=== PATIENT | female | born 1985 | race Asian ===

== ENCOUNTER 2017-11-06 17:51 | Outpatient (CLI) | END 2017-11-06 22:15 | disposition home or self-care (01) ==

== ENCOUNTER 2017-11-18 15:58 | Outpatient (CLI) | END 2017-11-18 21:25 | disposition home or self-care (01) ==

== ENCOUNTER 2017-11-23 04:04 | Inpatient (IN) | END 2017-11-27 22:00 | disposition home or self-care (01) | DRG 766 ==

== ENCOUNTER 2018-06-01 23:29 | Emergency (ER) | payer OTHER ==
[~2018-06-01] VITALS: Ht 157.5 cm; Wt 77.3 kg
[~2018-06-01 23:29] MED LIST: LEVO125T7 PO; PNV11TAB PO
[2018-06-01 23:39] VITALS: Ht 157.5 cm; Wt 77.3 kg
[2018-06-02] MEDS: SOD CHLORIDE 0.9% 1,000 ML IV STA ×2 (00:45→00:46)
--- NOTE | 2018-06-02 01:01 | ERD ---
ER Documentation Chief Complaint Chief Complaint vaginal bleeding since yesterday, unknown if . lmp 02/2018 HPI 32-year-old female presents here to emergency department for complaints of vaginal bleeding that started yesterday, known , has not had. For the last 3 months, complains of pelvic pain cramping pain, 6/10 scale, accompanied with vaginal bleeding, started as a spotting, got worse today. Patient denies any fever or chills. ROS All systems reviewed and are negative except as per history of present illness. Medications Home Meds Reported Medications Levothyroxine Sodium* (Levothyroxine Sodium*) 125 Mcg Tablet, 125 MCG PO BEFORE BREAKFAST, #30 TAB 11/18/17 [id number] ( 19) 1 Each Tablet, 1 TAB PO DAILY, TAB 11/18/17 Allergies Allergies: Coded Allergies: No Known Allergy (Unverified , 11/23/17) PMhx/Soc Medical and Surgical Hx: pt denies Medical Hx, pt denies Surgical Hx History of Surgery: No Anesthesia Reaction: No (UNKNOWN) Hx Neurological Disorder: No Hx Respiratory Disorders: No Hx Cardiac Disorders: No Hx Psychiatric Problems: No Hx Miscellaneous Medical Probl: Yes (HYPOTHYROIDISM) Hx Alcohol Use: No Hx Substance Use: No Hx Tobacco Use: No Smoking Status: Never smoker FmHx Family History: No diabetes, No coronary disease, No other Physical Exam Vitals Vital Signs Date Temp Pulse Resp B/P (MAP) Pulse Ox O2 O2 Flow FiO2 Time Delivery Rate 06/01/18 98.0 88 18 112/79 98 23:39 (90) Physical Exam GENERAL: The patient is well developed and appropriate for usual state of health, in no apparent distress. CHEST: Clear to auscultation bilaterally. There are no rales, wheezes or rhonchi. HEART: Regular rate and rhythm. No murmurs, clicks, rubs or gallops. No S3 or S4. ABDOMEN: Soft, nontender and nondistended. Good bowel sounds. No rebound or guarding. No gross peritonitis. No gross organomegaly or masses. No Jung sign or McBurney point tenderness. BACK: No midline or flank tenderness. EXTREMITIES: Equal pulses bilaterally. There is no peripheral clubbing, c yanosis or edema. No focal swelling or erythema. Full range of motion. Grossly neurovascularly intact. NEURO: Alert and oriented. Cranial nerves 2-12 intact. Motor strength in all 4 extremities with 5/5 strength. Sensation grossly intact. Normal speech and gait. SKIN: There is no apparent rash or petechia. The skin is warm and dry. HEMATOLOGIC AND LYMPHATIC: There is no evidence of excessive bruising or lymphedema. No gross cervical, axillary, or inguinal lymphadenopathy. Result Diagram: 06/02/18 0048 Results 24 hrs Laboratory Tests Test 06/02/18 00:21 06/02/18 00:46 06/02/18 00:48 Urine Color AUNDREA Urine Clarity TURBID Urine pH 6.0 Urine Specific [place] 1.016 Urine Ketones TRACE mg/dL Urine Nitrite NEGATIVE mg/dL Urine Bilirubin NEGATIVE mg/dL Urine Urobilinogen NEGATIVE mg/dL Urine Leukocyte Esterase NEGATIVE Yo/ul Urine Microscopic RBC > 182 /HPF Urine Microscopic WBC 0 /HPF Urine Bacteria FEW /HPF Urine Mucus MANY /HPF Urine Hemoglobin 3+ mg/dL Urine Glucose NEGATIVE mg/dL Urine Total Protein 2+ mg/dl POC Beta HCG, Qualitative POSITIVE White Blood Count 10.1 10^3/ul Red Blood Count 4.33 10^6/ul Hemoglobin 12.2 g/dl Hematocrit 37.8 % Mean Corpuscular Volume 87.3 fl Mean Corpuscular Hemoglobin 28.2 pg Mean Corpuscular 32.3 g/dl Hemoglobin Concent Red Cell Distribution Width 13.1 % Platelet Count 156 10^3/UL Mean Platelet Volume 11.8 fl Immature Granulocytes % 0.600 % Neutrophils % 76.5 % Lymphocytes % 16.7 % Monocytes % 5.8 % Eosinophils % 0.2 % Basophils % 0.2 % Nucleated Red Blood Cells % 0.0 /100WBC Immature Granulocytes # 0.060 10^3/ul Neutrophils # 7.7 10^3/ul Lymphocytes # 1.7 10^3/ul Monocytes # 0.6 10^3/ul Eosinophils # 0.0 10^3/ul Basophils # 0.0 10^3/ul Nucleated Red Blood Cells # 0.0 10^3/ul Serum HCG, Qualitative POSITIVE Beta HCG, Quantitative 3626.0 mIU/ml Current Medications Medications Dose Sig/Kathi Start Time Status Last (Trade) Ordered Route PRN Stop Time Admin Dose Reason Admin Sodium 1,000 ml @ Q1H STAT 06/02/18 DC 06/02/18 Chloride 1,000 mls/hr IV 00:33 00:46 06/02/18 01:32 Normal saline IV bolus was given here in emergency department for rehydration, patient tolerated IV fluids. Procedures/MDM Medical Decision Making: Patients vaginal bleeding is most likely consistent of possible threatened . Patient does not show any evidence of hypovolemic shock. Patients hemoglobin and hematocrit is stable. There is low suspicion for ectopic . SCOTT results show 6-week without any heartbeat. BetaHCG Quantitative is appropriate for .The patient is Rh+, does not need RhoGAM this time. There is no signs of symptoms of dehydration. There is low suspicion for sepsis. Patient appears well and is hemodynamically stable. Disposition: Home. Condition: Stable Prescription: Tylenol ferrous sulfate Instructions: Patient is advised to do bed rest, avoid heavy lifting, and avoid having sex until cleared by OB doctor. Patient is advised to follow up with OB doctor or here at the ER in 48 hours for reevaluation of symptoms, repeat beta HCG quantitative and ultrasound. Patient is advised that is symptoms are worst, severe bleeding, dizziness, severe abdominal pain, fever, worst signs and symptoms to return to the emergency department immediately. Disclaimer: Inadvertent spelling and grammatical errors are likely due to EHR/dictation software use and do not reflect on the overall quality of patient care. Also, please note that the electronic time recorded on this note does not necessarily reflect the actual time of the patient encounter. Departure Diagnosis: Primary Impression: Vaginal bleeding affecting early Condition: Stable Patient Instructions: Vaginal Bleed in Additional Instructions: : Patient is advised to do bed rest, avoid heavy lifting, and avoid having sex until cleared by OB doctor. Patient is advised to follow up with OB doctor or here at the ER in 48 hours for reevaluation of symptoms, repeat beta HCG quantitative and ultrasound. Patient is advised that is symptoms are worst, severe bleeding, dizziness, severe abdominal pain, fever, worst signs and sympto ms to return to the emergency department immediately. MELBA SHANE NP Jun 02, 2018 01:01
[2018-06-02] MEDS ORDERED: ACET500C5 PO (02:28)
[2018-06-02] MEDS ORDERED: FER325 PO (02:28)
[2018-06-02 02:55] VITALS: BP 122/69; PULSE 86; RESP 19
== END 2018-06-02 02:56 | disposition home or self-care (01) ==
LOC: FTE 23:29
DX: O20.9 Hemorrhage in early pregnancy, unspecified (principal); E03.9 Hypothyroidism, unspecified; O99.281 Endocrine, nutritional and metabolic diseases complicating pregnancy, first trimester; R10.2 Pelvic and perineal pain; Z3A.01 Less than 8 weeks gestation of pregnancy
CPT/HCPCS: 36415; 76801; 76817; 81001; 81025; 84702; 84703; 85025; 86900; 86901; J7030; Z7502

== ENCOUNTER 2018-12-26 15:19 | Inpatient (IN) | payer OTHER ==
[~2018-12-26] VITALS: Ht 157.5 cm; Wt 78.6 kg
[~2018-12-26 15:19] MED LIST changes: +ACET500C5 PO; +FER325 PO; +IBUP-1542 PO
[2018-12-26] MEDS ORDERED: ONDANSETRON 4 MG INJ IV PRN (20:00)
[2018-12-26] MEDS ORDERED: ACETAMINOPHEN 325 MG TAB PO PRN (20:00)
--- NOTE | 2018-12-26 20:11 | ERD ---
ER Documentation Chief Complaint Chief Complaint right lower quad pain x 4 days with nausea HPI This is a 33-year-old G3, female who presents to the ED complaining of progressively worsening right lower pelvic pain x4 days. Patient states pain radiates towards her mid upper back. She states pain is worse when standing or with movement. She states her last menstrual cycle was October 31, 2018 and does not know if she is . She states she had a similar pain approximately 3 years ago which was related to her right ovarian cyst. She denies any nausea or vomiting. Denies any vaginal bleeding or discharge. No urinary symptoms. No nausea or vomiting. No chest pain or shortness of breath. No other complaints. ROS All systems reviewed and are negative except as per history of present illness. Medications Home Meds Active Scripts Ferrous Sulfate* (Ferrous Sulfate*) 325 Mg Tabec, 325 MG PO BID, #60 TAB Prov:MELBA SHANE COMMUTATOR INSPECTOR 06/02/18 Acetaminophen* (Tylophen*) 500 Mg Capsule, 1 CAP PO Q6H PRN for PAIN AND OR ELEVATED TEMP, #20 CAP Prov:MELBA SHANE COMMUTATOR INSPECTOR 06/02/18 Reported Medications Levothyroxine Sodium* (Levothyroxine Sodium*) 125 Mcg Tablet, 125 MCG PO BEFORE BREAKFAST, #30 TAB 11/18/17 [id number] ( 19) 1 Each Tablet, 1 TAB PO DAILY, TAB 11/18/17 Allergies Allergies: Coded Allergies: No Known Allergy (Unverified , 11/23/17) PMhx/Soc History of Surgery: Yes (C section) Anesthesia Reaction: No (UNKNOWN) Hx Neurological Disorder: No Hx Respiratory Disorders: No Hx Cardiac Disorders: No Hx Psychiatric Problems: No Hx Miscellaneous Medical Probl: Yes (HYPOTHYROIDISM) Hx Alcohol Use: No Hx Substance Use: No Hx Tobacco Use: No Smoking Status: Never smoker Physical Exam Vitals Vital Signs Date Temp Pulse Resp B/P (MAP) Pulse Ox O2 O2 Flow FiO2 Time Delivery Rate 12/26/18 98.6 84 18 165/63 99 15:25 (97) Physical Exam Const: No acute distress Head: Atraumatic Eyes: Normal Conjunctiva ENT: Normal External Ears, Nose and Mouth. Neck: Full range of motion. No meningismus. Resp: Clear to auscultation bilaterally Cardio: Regular rate and rhythm, no murmurs Abd: Soft, + moderate right pelvic TTP, non distended. Normal bowel sounds. Negative murphys, negative mcburnye's, Bowel sounds active in all 4 quadrants. Skin: No petechiae or rashes Back: No midline or flank tenderness Ext: No cyanosis, or edema Neur: Awake and alert Psych: Normal Mood and Affect Result Diagram: 12/26/18 1635 12/26/18 1635 Results 24 hrs Laboratory Tests Test 12/26/18 16:35 12/26/18 16:44 12/26/18 16:47 White Blood Count 9.1 10^3/ul Red Blood Count 4.18 10^6/ul Hemoglobin 11.6 g/dl Hematocrit 36.3 % Mean Corpuscular Volume 86.8 fl Mean Corpuscular Hemoglobin 27.8 pg Mean Corpuscular Hemoglobin Concent 32.0 g/dl Red Cell Distribution Width 14.5 % Platelet Count 173 10^3/UL Mean Platelet Volume 11.5 fl Immature Granulocytes % 0.400 % Neutrophils % 74.8 % Lymphocytes % 17.2 % Monocytes % 7.3 % Eosinophils % 0.1 % Basophils % 0.2 % Nucleated Red Blood Cells % 0.0 /100WBC Immature Granulocytes # 0.040 10^3/ul Neutrophils # 6.8 10^3/ul Lymphocytes # 1.6 10^3/ul Monocytes # 0.7 10^3/ul Eosinophils # 0.0 10^3/ul Basophils # 0.0 10^3/ul Nucleated Red Blood Cells # 0.0 10^3/ul Urine Color YELLOW Urine Clarity CLEAR Urine pH 7.0 Urine Specific [place] 1.012 Urine Ketones NEGATIVE mg/dL Urine Nitrite NEGATIVE mg/dL Urine Bilirubin NEGATIVE mg/dL Urine Urobilinogen NEGATIVE mg/dL Urine Leukocyte Esterase NEGATIVE Yo/ul Urine Hemoglobin NEGATIVE mg/dL Urine Glucose 1+ mg/dL Urine Total Protein NEGATIVE mg/dl Sodium Level 138 mmol/L Potassium Level 3.5 mmol/L Chloride Level 110 mmol/L Carbon Dioxide Level 19 mmol/L Anion Gap 9 Blood Urea Nitrogen 10 mg/dl Creatinine 0.78 mg/dl Est Glomerular Filtrat Rate mL/min > 60 mL/min Glucose Level 122 mg/dl Calcium Level 9.3 mg/dl Total Bilirubin 0.4 mg/dl Direct Bilirubin 0.00 mg/dl Indirect Bilirubin 0.4 mg/dl Aspartate Amino Transf (AST/SGOT) 23 IU/L Alanine Aminotransferase (ALT/SGPT) 19 IU/L Alkaline Phosphatase 75 IU/L Total Protein 9.3 g/dl Albumin 4.7 g/dl Globulin 4.60 g/dl Albumin/Globulin Ratio 1.02 Amylase Level 150 U/L Lipase 94 U/L Beta HCG, Quantitative 72933.0 mIU/ml POC Beta HCG, Qualitative POSITIVE Serum HCG, Qualitative POSITIVE Current Medications Medications Dose Sig/Kathi Start Time Status Last (Trade) Ordered Route PRN Stop Time Admin Dose Reason Admin Ondansetron 4 mg BRIDGE ORDER 12/26/18 HCl (Zofran PRN IV 20:00 Inj) NAUSEA/VOMITI 12/27/18 19:59 NG 650 mg ER BRIDGE 12/26/18 Acetaminophen PRN PO 20:00 (Tylenol .MILD PAIN 12/27/18 19:59 Tab) 1-3 OR TEMP Procedures/MDM LABS & DIAGNOSTIC IMAGING: CBC: + mild anemia w/ H&H of 11.3 & 36 CMP: no e/o severe acidosis, alkalosis, renal failure, diabetic ketoacidosis, liver disease Urine: no e/o acute infection or hematuria Beta hc MEDICAL DECISION MAKING: This is a 33-year-old G3, female who presents with progressive right pelvic pain. She is found to be with a beta hCG level of over 30,000 however pelvic ultrasound shows no live intrauterine . I discussed these findings w/ my supervising physician, Dr. Tilley, and we reached out to OB on-call, for admitting for possible ectopic . U/S also revealed a right complex 1.8 ovarian cyst which could also be the cause of her pain. There is no evidence of ruptured ovarian cyst or ovarian torsion. Mild anemia with hemoglobin 11 on labs however vital signs are stable and she has no evidence of active bleeding. Plan to admit patient for rule out ectopic . Case will be transferred over to the admitting physician at this time. Departure Diagnosis: Primary Impression: Pelvic pain Additional Impression: Ectopic Location of ectopic : unspecified location Intrauterine status: unspecified Qualified Codes: O00.90 - Unspecified ectopic without intrauterine Condition: PERRI Melendez PA-C Dec 26, 2018 20:11
[2018-12-26 22:20] VITALS: Ht 157.5 cm; Wt 78.6 kg
[2018-12-26 22:43] VITALS: BP 91/46; PULSE 74; RESP 18
[2018-12-26] MEDS ORDERED: LACTATED RINGER'S 1,000 ML IV SCH (23:15)
--- NOTE | 2018-12-26 23:26 | HP ---
Date/Time of Note Date/Time of Note DATE: 12/26/18 TIME: 23:22 OB - History Hx of Present Free Text/Dictation 33 years old abdominal pain for last 4 days, no vaginal bleeding Last Menstrual Period: Oct 23, 2018 Obstetrical Complications: Other (h/o CS x1 , h/o SAB X 1) Medical Complications: None Past Family/Social History * Past Medical, Surgical, Family and Obstetric Histories reviewed from [facility]. OB Admission Exam Vital Signs Vital Signs Vital Signs Date Temp Pulse Resp B/P (MAP) Pulse Ox O2 O2 Flow FiO2 Time Delivery Rate 12/26/18 98.1 74 18 91/46 (61) 96 Room Air 22:43 Physical Exam Heart: Rhythm Normal Lungs: Clear Abdomen: Abnormal (prominent lower abdominal tendernessmore right then left) Extremities: Normal Cervical Dilatation: other (no bleeding) Last 72 hours Lab Results CBC & BMP 12/26/18 16:35 Liver Function Test 12/26/18 16:35 Alanine Aminotransferase (ALT/SGPT) 19 Albumin 4.7 Alkaline Phosphatase 75 Aspartate Amino Transf (AST/SGOT) 23 Direct Bilirubin 0.00 Total Protein 9.3 H OB Assessment/Plan Reason for admission: other (HCG > 44155, enlarged right ovary, no IUP on US, severly tender abdomen, r/o ectopic ) Induction Method: other (pre op for laparoscopy, possible laparotomy, salpingoohorectomy, left or right) MAMI GARCIA MD Dec 26, 2018 23:26
[2018-12-26] MEDS ORDERED: CEFAZOLIN 2 GM/50 ML (PMX) 50 ML IVPB ONE (23:30)
[2018-12-27] VITALS (23 sets, daily range): BP systolic 87–115; BP diastolic 47–73; PULSE 80–105; RESP 15–24
--- NOTE | 2018-12-27 00:21 | PREAC ---
Date/Time of Note Date/Time of Note DATE: 12/27/18 TIME: 00:17 Anesthesia Eval and Record Evaluation Time Pre-Procedure Interview DATE: 12/27/18 TIME: 00:17 Age 33 Sex female NPO: 8 hrs Preoperative diagnosis Ectopic Planned procedure Laparoscopic exploration and salpingectomy Past Medical History Past Medical History: Includes Endo: Hypothyroid Surgery & Anesthesia Issues No known issue Meds Anticoagulation: No Beta Dilip within 24 hr: No Reason Beta Dilip not given: Pt. not on B-Dilip Active Scripts Ferrous Sulfate* (Ferrous Sulfate*) 325 Mg Tabec, 325 MG PO BID, #60 TAB Prov:MELBA SHANE INTERIOR PAINTER 06/02/18 Acetaminophen* (Tylophen*) 500 Mg Capsule, 1 CAP PO Q6H PRN for PAIN AND OR PARKER VATED TEMP, #20 CAP Prov:MELBA SHANE INTERIOR PAINTER 06/02/18 Reported Medications Levothyroxine Sodium* (Levothyroxine Sodium*) 125 Mcg Tablet, 125 MCG PO BEFORE BREAKFAST, #30 TAB 11/18/17 [id number] ( 19) 1 Each Tablet, 1 TAB PO DAILY, TAB 11/18/17 Current Medications Ondansetron HCl (Zofran Inj) 4 mg BRIDGE ORDER PRN IV NAUSEA/VOMITING; Start 12/26/18 at 20:00; Stop 12/27/18 at 19:59 Acetaminophen (Tylenol Tab) 650 mg ER BRIDGE PRN PO .MILD PAIN 1-3 OR TEMP; Start 12/26/18 at 20:00; Stop 12/27/18 at 19:59 Lactated Ringer's 1,000 ml @ 125 mls/hr Q8H IV Last administered on 12/26/18at 23:34; Admin Dose 125 MLS/HR; Start 12/26/18 at 23:15 Meds reviewed: Yes Allergies Coded Allergies: No Known Allergy (Unverified , 11/23/17) Allergies Reviewed: Yes Labs/Studies Labs Reviewed: Reviewed by anesthesiologist Result Diagram: 12/26/18 3197 12/26/18 1639 Laboratory Tests 12/26/18 16:35 12/26/18 23:29 Blood Bank Test 12/26/18 23:29 Blood Type B POSITIVE test: Positive Studies: ECG Pre-procedure Exam Last vitals Vital Signs Date Temp Pulse Resp B/P (MAP) Pulse Ox O2 O2 Flow FiO2 Time Delivery Rate 12/26/18 98.1 74 18 91/46 (61) 96 Room Air 22:43 Airway: Adequate mouth opening, Adequate thyromental dist Mallampati: Mallampati II Teeth: Normal Lung: Normal Heart: Normal ASA Physical Status ASA physical status: 3 Emergency: E Planned Anesthetic General/MAC: ETT Neuraxial: Spinal Planned Pain Management Sub-arachniod narcotics, Parenteral pain med Pre-operative Attestations Prior to commencing anesthesia and surgery, the patient was re-evaluated, there was verification of: *The patient's identity *The results of appropriate recent lab work and preoperative vital signs *The above evaluation not changing prior to induction *Anesthetic plan, risk benefits, alternative and complications discussed with patient/family; questions answered; patient/family understands, accepts and wishes to proceed. JAYDA FRANKLIN MD Dec 27, 2018 00:21
[2018-12-27] MEDS ORDERED: MIDAZOLAM 1 MG/ML 2 ML INJ ONE (00:46)
[2018-12-27] MEDS ORDERED: FENTAnyl 50 MCG/ML VIAL ONE (00:46)
[2018-12-27] MEDS ORDERED: morphine SULFATE/PF (10 MG/10 ML) INJ ONE (00:46)
[2018-12-27] MEDS ORDERED: LACTATED RINGER'S 1,000 ML IV SCH (00:58)
[2018-12-27] MEDS ORDERED: HYDROCODONE/APAP (5/325) TAB PO PRN (01:00)
--- NOTE | 2018-12-27 02:37 | OPR ---
Operative Report Planned Procedure Free Text/Dictation r/o ectopic Procedure date Dec 27, 2018 Procedure(s) laparoscopy, evacuation of hemoperitoneum, lysis of adhesionts, right salpigectomy Performed by Mami Gracia M.D. Plastic Panel Installer: JEREMIAH CRESPO MD Anesthesiologist: JAYDA FRANKLIN MD Pre-procedure diagnosis r/o ectopic [id number] Anesthesia Type: [id number] general Post-Procedure Post-procedure diagnosis ruptures right tubal ectopic , hemoperitoneum Findings Live Baby [], Apgars [] and [], weight [], position [], [] presentation []cord. Estimated Blood Loss: other (250 cc, oncluding 200cc hemoperitoneum) Specimen(s) right fallopian tube with ectopic Grafts/Implant(s) none Complication(s) none Disposition: PACU Procedure Description Patient taken to operating room, intubated Prepped and drapped in sterille fashion, HUMI uterine manipulator and folley inserted 5 mm insision bellow umbilicuc made. Varies needle inserted into the abdominal cavity Pleasement confirmed with drop of water true the syringe into the cavity CO2 gas insuflated to pressure 16 Nedle removed 5 mm trocar inserted pleacement confirmed with laparoscopic camera. Survey showed rupture right tubal ectopic , hemoperitoneum, normal left tube and normal left and right ovaries left and right anterior wall 2 trocars inserted. Using Gyris performed Lysis of adhesionts of omentum from the uterus, then perphormed salpingectomy of ruptured dysmorfic right tube with ectopic . Endobag was inserted, specimnt removed and send to pathology, sucction and irrigation, no bleeding Surgecell left in anne area, no bleeding Instruments removed, gas exsuflted, port sides closed no bleeding HUMI removed Patient extubated and taken to recovery in stable condition Final count of labs, needles and instruments are correct MAMI GARCIA MD Dec 27, 2018 02:37
[2018-12-27] MEDS ORDERED: ONDANSETRON 4 MG INJ ONE (02:40)
[2018-12-27] MEDS ORDERED: ROCURONIUM 50 MG INJ ONE (02:41)
[2018-12-27] MEDS ORDERED: PROPOFOL 20 ML ONE (02:41)
[2018-12-27] MEDS ORDERED: NEOSTIGMINE 3 MG/3 ML SYRINGE ONE (02:41)
[2018-12-27] MEDS ORDERED: LIDOCAINE 2% (SDV) 5 ML INJ ONE (02:41)
[2018-12-27] MEDS ORDERED: GLYCOPYRROLATE 0.4 MG INJ ONE (02:41)
[2018-12-27] MEDS ORDERED: MEPERIDINE 25 MG INJ ONE (02:50)
--- NOTE | 2018-12-27 02:50 | PAC ---
Date/Time of Note Date/Time of Note DATE: 12/27/18 TIME: 02:49 Post-Anesthesia Notes Post-Anesthesia Note Last documented vital signs Vital Signs Date Temp Pulse Resp B/P (MAP) Pulse Ox O2 O2 Flow FiO2 Time Delivery Rate 12/26/18 98.1 74 18 91/46 (61) 96 Room Air 22:43 Activity: WNL Respiratory function: WNL Cardiovascular function: WNL Mental status: Baseline Pain reasonably controlled: Yes Hydration appropriate: Yes Nausea/Vomiting absent: Yes Comments BP:112/67, P:98, Spo2:100%, T:98,8 JAYDA FRANKLIN MD Dec 27, 2018 02:50
[2018-12-27] MEDS ORDERED: KETOROLAC 30 MG INJ IV PRN (03:00)
[2018-12-27] MEDS ORDERED: DIPHENHYDRAMINE 50 MG INJ IV PRN (03:00)
[2018-12-27] MEDS ORDERED: ONDANSETRON 4 MG INJ IV PRN (03:00)
[2018-12-27] MEDS ORDERED: HYDROmorphONE 1 MG/5 ML IV SYRINGE IV PRN ×2 (03:00)
[2018-12-27] MEDS ORDERED: MEPERIDINE 25 MG INJ IV PRN (03:00)
[2018-12-27] MEDS ORDERED: FENTAnyl 50 MCG/ML VIAL IV PRN (03:00)
[2018-12-27] MEDS ORDERED: METOCLOPRAMIDE 10 MG INJ IV PRN (03:00)
--- NOTE | 2018-12-27 11:25 | DS ---
Date/Time of Note Date/Time of Note DATE: 12/27/18 TIME: 11:22 Discharge Summary Admission/Discharge Info Admit Date/Time Dec 26, 2018 at 19:48 Discharge Date/Time December 27, 2018 Discharge Diagnosis Status post laparoscopic right salpingectomy for ruptured ectopic Patient Condition: Good Hospital Course Patient status post laparoscopic right salpingectomy for ruptured ectopic Patient stable and afebrile Patient is ambulating, voiding urine, passing flatus and tolerating regular diet VS - Last 72 Hours, by Label Date Temp Pulse Resp B/P (MAP) Pulse Ox O2 O2 Flow FiO2 Time Delivery Rate 12/27/18 98.0 96 20 98/56 (70) 97 07:19 12/27/18 105 18 93/57 (69) 97 Room Air 07:15 12/27/18 87 18 102/57 97 Room Air 06:15 (72) 12/27/18 89 18 92/58 (69) 97 Room Air 05:45 12/27/18 91 18 96/63 (74) 97 Room Air 05:15 12/27/18 86 18 93/49 (64) 97 Room Air 05:00 12/27/18 86 18 93/57 (69) 97 Room Air 04:45 12/27/18 81 18 90/50 (63) 97 Room Air 04:30 12/27/18 80 18 87/56 (66) 97 Room Air 04:15 12/27/18 98.3 82 20 97/55 (69) 97 Room Air 04:04 12/27/18 96 20 97/53 (68) 95 Room Air 03:45 12/27/18 92 16 93/56 (68) 96 Room Air 03:40 12/27/18 96 18 98/52 (67) 96 Room Air 03:35 12/27/18 94 20 96/57 (70) 96 Room Air 03:30 12/27/18 90 17 95/56 (69) 96 Room Air 03:25 12/27/18 90 23 104/47 96 Room Air 03:20 (66) 12/27/18 92 24 112/66 99 Room Air 03:15 (81) 12/27/18 94 18 115/67 98 Room Air 03:10 (83) 12/27/18 82 15 103/62 96 Room Air 03:05 (76) 8/10/19 84 15 104/59 98 Room Air 03:00 (74) 12/27/18 98.0 02:57 12/27/18 100 24 112/73 98 Room Air 02:55 (86) 12/27/18 98.0 98 22 115/68 98 Room Air 02:46 (84) 12/26/18 98.1 74 18 91/46 (61) 96 Room Air 22:43 12/26/18 79 20 114/77 99 Room Air 21:34 (89) 12/26/18 98.6 85 18 120/81 99 Room Air 20:35 (94) 12/26/18 98.6 84 18 165/63 99 15:25 (97) Abdomen soft Incision clean dry intact Extremities nontender Assessment and plan Discharge home today Follow-up with Dr. Mejia in 1 week Home Meds Active Scripts Ferrous Sulfate* (Ferrous Sulfate*) 325 Mg Tabec, 325 MG PO BID, #60 TAB Prov:MELBA SHANE WRAPPER OPENER 06/02/18 Acetaminophen* (Tylophen*) 500 Mg Capsule, 1 CAP PO Q6H PRN for PAIN AND OR ELEVATED TEMP, #20 CAP Prov:MELBA SHANE WRAPPER OPENER 06/02/18 Reported Medications Levothyroxine Sodium* (Levothyroxine Sodium*) 125 Mcg Tablet, 125 MCG PO BEFORE BREAKFAST, #30 TAB 11/18/17 [id number] ( 19) 1 Each Tablet, 1 TAB PO DAILY, TAB 11/18/17 Follow-up Plan Prescription for pain meds were given 1 week follow-up with Dr. Mejia Primary Care Provider Not On Staff Doctor Time spent on discharge: < 30 minutes Pending Labs Hematology - 72 Hrs Test 12/26/18 16:35 12/26/18 23:29 12/27/18 11:03 Hematocrit 36.3 % (37.0-47.0) 36.7 % (37.0-47.0) 32.4 % (37.0-47.0) L L L Hemoglobin 11.6 11.7 10.1 g/dl (12.0-16.0) L g/dl (12.0-16.0) g/dl (12.0-16.0) L L Mean Corpuscular 27.8 pg (29.0-33.0) 27.4 Hemoglobin L pg (29.0-33.0) L Mean Corpuscular 32.0 31.2 Hemoglobin Concent g/dl (32.0-37.0) g/dl (32.0-37.0) L Mean Corpuscular 86.8 88.0 Volume fl (82.0-101.0) fl (82.0-101.0) Mean Platelet 11.5 fl (7.4-10.4) 11.6 fl (7.4-10.4) Volume H H Platelet Count 173 144 10^3/UL (140-415) 10^3/UL (140-415) Red Blood Count 4.18 3.68 10^6/ul (4.20-5.40) 10^6/ul (4.20-5.40 L ) L Red Cell 14.5 % (11.5-14.5) 14.5 % (11.5-14.5) Distribution Width White Blood Count 9.1 7.9 10^3/ul (4.8-10.8) 10^3/ul (4.8-10.8) Chemistry Test 12/26/18 16:35 12/26/18 16:44 12/26/18 16:47 Sodium Level 138 mmol/L (135-144) Potassium Level 3.5 mmol/L (3.5-5.1) Chloride Level 110 mmol/L (97-110) Carbon Dioxide 19 mmol/L (21-31) Level L Anion Gap 9 (5-13) Blood Urea 10 mg/dl (7-20) Nitrogen Creatinine 0.78 mg/dl (0.44-1.00) Est Glomerular > 60 mL/min (>60) Filtrat Rate mL/min Glucose Level 122 mg/dl (70-220) Calcium Level 9.3 mg/dl (8.4-10.2) Total Bilirubin 0.4 mg/dl (0.2-1.3) Direct Bilirubin 0.00 mg/dl (0.00-0.20) Indirect Bilirubin 0.4 mg/dl (0-1.1) Aspartate Amino 23 IU/L (15-46) Transf (AST/SGOT) Alanine 19 IU/L (13-69) Aminotransferase (A LT/SGPT) Alkaline 75 IU/L (42-121) Phosphatase Total Protein 9.3 g/dl (6.1-8.1) H Albumin 4.7 g/dl (3.3-4.9) Globulin 4.60 g/dl (1.3-3.2) H Albumin/Globulin 1.02 Ratio Amylase Level 150 U/L (11-123) H Lipase 94 U/L (23-300) Beta HCG, 32463.0 mIU/ml Quantitative POC Beta HCG, POSITIVE (NEGATIVE Qualitative ) H Serum HCG, POSITIVE (NEGATIVE Qualitative ) ANDER NUNEZ MD Dec 27, 2018 11:25
[2018-12-27] MEDS ORDERED: BISACODYL 10 MG SUPP PR ONE ×2 (15:06→15:30)
== END 2018-12-27 18:55 | disposition home or self-care (01) | DRG 817 ==
LOC: FTE 15:19 → MS1 19:48
PROVIDERS: ADMIT Obstetrics & Gynecology; ATTEND Obstetrics & Gynecology
PROC: 10T24ZZ Resection of Products of Conception, Ectopic, Percutaneous Endoscopic Approach (ICD-10-PCS; 2018-12-27)
PROC: 0UB54ZZ Excision of Right Fallopian Tube, Percutaneous Endoscopic Approach (ICD-10-PCS; principal; 2018-12-27 23:30)
DX: O00.101 Right tubal pregnancy without intrauterine pregnancy (principal); K66.1 Hemoperitoneum; O99.281 Endocrine, nutritional and metabolic diseases complicating pregnancy, first trimester; E03.9 Hypothyroidism, unspecified; Z3A.00 Weeks of gestation of pregnancy not specified
CPT/HCPCS: 36415; 76801; 76817; 80053; 81003; 81025; 82150; 83690; 84702; 84703; 85014; 85018; 85025; 86850; 86900; 86901; 88305; J0690; J1170; J2175; J2250; J2274; J2405; J2710; J3010; J7120

== ENCOUNTER 2018-12-30 12:44 | Emergency (ER) | payer OTHER ==
[~2018-12-30] VITALS: Ht 157.5 cm; Wt 79.1 kg
[2018-12-30 12:50] VITALS: Ht 157.5 cm; Wt 79.1 kg
--- NOTE | 2018-12-30 14:19 | ERD ---
ER Documentation Chief Complaint Chief Complaint SEVERE PAIN S/P LAP SURGERY DUE TO ECTOPIC 3 DAYS AGO HPI The patient is a 33-year-old female, presenting to the ER because of vaginal spotting and pelvic pain today, had laparoscopic ruptured ectopic surgery 3 days ago denies fever, chills, syncope, near syncope, neck pain, chest pain, complains of minimal pain at the surgical site, denies any diarrhea, constipation, complains of dysuria. She does not smoke nor drink Past medical history: Hypothyroidism Past surgical history: , right salpingectomy ROS All systems reviewed and are negative except as per history of present illness. Medications Home Meds Active Scripts Ibuprofen* (Motrin*) 600 Mg Tab, 600 MG PO Q6H PRN for PAIN AND OR ELEVATED TEMP, #20 TAB Prov:DANIE MEDINA MD 12/30/18 Ferrous Sulfate* (Ferrous Sulfate*) 325 Mg Tabec, 325 MG PO BID, #60 TAB Prov:MELBA SHANE NP 06/02/18 Acetaminophen* (Tylophen*) 500 Mg Capsule, 1 CAP PO Q6H PRN for PAIN AND OR ELEVATED TEMP, #20 CAP Prov:MELBA SHANE NP 06/02/18 Reported Medications Levothyroxine Sodium* (Levothyroxine Sodium*) 125 Mcg Tablet, 125 MCG PO BEFORE BREAKFAST, #30 TAB 11/18/17 [id number] ( 19) 1 Each Tablet, 1 TAB PO DAILY, TAB 11/18/17 Allergies Allergies: Coded Allergies: No Known Allergy (Unverified , 12/30/18) PMhx/Soc History of Surgery: Yes (CSection-11/23/17) Anesthesia Reaction: No Hx Neurological Disorder: No Hx Respiratory Disorders: No Hx Cardiac Disorders: No Hx Psychiatric Problems: No Hx Miscellaneous Medical Probl: No Hx Alcohol Use: No Hx Substance Use: No Hx Tobacco Use: No Physical Exam Vitals Vital Signs Date Temp Pulse Resp B/P (MAP) Pulse Ox O2 O2 Flow FiO2 Time Delivery Rate 12/30/18 67 18 100/70 100 Room Air 19:21 (80) 12/30/18 59 16 97/68 (78) 100 Room Air 18:50 12/30/18 66 16 95/65 (75) 100 Room Air 15:56 12/30/18 99.1 86 18 114/63 99 12:50 (80) Physical Exam Const: No acute distress. Head: Atraumatic. Eyes: Normal Conjunctiva. ENT: Normal External Ears, Nose and Mouth. Neck: Full range of motion. No meningismus. Resp: Clear to auscultation bilaterally. Cardio: Regular rate and rhythm. Abd: Soft, non distended, normal bowel sounds, non tender. Skin: No petechiae or rashes. Back: No midline or flank tenderness. Ext: No cyanosis, or edema. Neur: Awake and alert. No focal deficit Psych: Normal Mood and Affect. Result Diagram: 12/30/18 1442 12/30/18 1442 Results 24 hrs Laboratory Tests Test 12/30/18 14:41 12/30/18 14:42 Bedside Urine pH (LAB) 7.0 Bedside Urine Protein (LAB) 1+ Bedside Urine Glucose (UA) Negative Bedside Urine Ketones (LAB) Negative Bedside Urine Blood 2+ Bedside Urine Nitrite (LAB) Negative Bedside Urine Leukocyte Esterase (L Negative White Blood Count 8.4 10^3/ul Red Blood Count 3.77 10^6/ul Hemoglobin 10.4 g/dl Hematocrit 32.3 % Mean Corpuscular Volume 85.7 fl Mean Corpuscular Hemoglobin 27.6 pg Mean Corpuscular Hemoglobin Concent 32.2 g/dl Red Cell Distribution Width 14.6 % Platelet Count 170 10^3/UL Mean Platelet Volume 11.5 fl Immature Granulocytes % 0.500 % Neutrophils % 78.5 % Lymphocytes % 14.6 % Monocytes % 6.1 % Eosinophils % 0.1 % Basophils % 0.2 % Nucleated Red Blood Cells % 0.0 /100WBC Immature Granulocytes # 0.040 10^3/ul Neutrophils # 6.6 10^3/ul Lymphocytes # 1.2 10^3/ul Monocytes # 0.5 10^3/ul Eosinophils # 0.0 10^3/ul Basophils # 0.0 10^3/ul Nucleated Red Blood Cells # 0.0 10^3/ul Sodium Level 139 mmol/L Potassium Level 3.4 mmol/L Chloride Level 111 mmol/L Carbon Dioxide Level 20 mmol/L Anion Gap 8 Blood Urea Nitrogen 9 mg/dl Creatinine 0.72 mg/dl Est Glomerular Filtrat Rate mL/min > 60 mL/min Glucose Level 97 mg/dl Calcium Level 8.8 mg/dl Total Bilirubin 0.3 mg/dl Direct Bilirubin 0.00 mg/dl Indirect Bilirubin 0.3 mg/dl Aspartate Amino Transf (AST/SGOT) 22 IU/L Alanine Aminotransferase (ALT/SGPT) 18 IU/L Alkaline Phosphatase 83 IU/L Total Protein 8.3 g/dl Albumin 4.1 g/dl Globulin 4.20 g/dl Albumin/Globulin Ratio 0.97 Lipase 79 U/L Beta HCG, Quantitative 1230.1 mIU/ml Current Medications Medications Dose Sig/Kathi Start Time Status Last (Trade) Ordered Route PRN Stop Time Admin Dose Reason Admin Sodium 1,000 ml @ Q1H ONCE 12/30/18 DC 12/30/18 Chloride 1,000 mls/hr IV 15:00 14:41 12/30/18 15:59 Morphine 2 mg ONCE STAT 12/30/18 DC 12/30/18 Sulfate IV 14:42 14:56 (morphine) 12/30/18 14:43 Ondansetron 4 mg ONCE STAT 12/30/18 DC 12/30/18 HCl (Zofran IV 14:42 14:55 Inj) 12/30/18 14:43 Potassium 40 meq ONCE STAT 12/30/18 DC 12/30/18 Chloride PO 17:28 18:22 (Klor-Con 20) 12/30/18 17:37 Sodium 1,000 ml @ Q1H ONCE 12/30/18 DC 12/30/18 Chloride 1,000 mls/hr IV 17:30 18:22 12/30/18 18:29 Procedures/MDM MEDICAL MAKING DECISION: The patient is a 33-year-old female, presenting with acute postoperative pain, acute dehydration, acute hypokalemia, treated with 2 L normal saline for acute dehydration, morphine 2 mg IV for pain, Zofran 4 mg IV for nausea, potassium chloride 40 mEq p.o. for acute hypokalemia with good response. Consultation: I did paged her [facility] physician Dr. Burleson multiple times but he did not return the page The differential diagnoses considered include but are not limited to postoperative pain, UTI, pyelonephritis, endometritis Departure Diagnosis: Primary Impression: Postoperative pain Additional Impressions: Hypokalemia Anemia Condition: Good Comments She was discharged with Motrin I discussed the findings with the patient. I advised the patient to follow-up with Dr Burleson in the morning if needed and return if any concern. Disclaimer: Inadvertent spelling and grammatical errors are likely due to EHR/dictation software use and do not reflect on the overall quality of patient care. Also, please note that the electronic time recorded on this note does not necessarily reflect the actual time of the patient encounter. DANIE MEDINA MD Dec 30, 2018 14:19
[2018-12-30] MEDS ORDERED: ONDANSETRON 4 MG INJ IV STA (14:42)
[2018-12-30] MEDS ORDERED: morphine 2 MG INJ IV STA (14:42)
[2018-12-30] MEDS ORDERED: SOD CHLORIDE 0.9% 1,000 ML IV ONE ×2 (15:00→17:30)
[2018-12-30] MEDS ORDERED: POTASSIUM CHLORIDE (SR) 20 MEQ TAB PO STA (17:28)
[2018-12-30 19:21] VITALS: BP 100/70; PULSE 67; RESP 18
== END 2018-12-30 19:37 | disposition home or self-care (01) ==
LOC: E/R 12:44
DX: G89.18 Other acute postprocedural pain (principal); E87.6 Hypokalemia; D64.9 Anemia, unspecified; E03.9 Hypothyroidism, unspecified; R10.2 Pelvic and perineal pain
CPT/HCPCS: 36415; 80053; 81003; 83690; 84702; 85025; 96374; 96375; J2270; J2405; J7030; Z7502; Z7610